=== PATIENT | male | born 1965 | race Asian ===

== ENCOUNTER 2023-10-18 12:45 | Emergency (ER) | payer OTHER ==
[~2023-10-18] VITALS: Ht 188 cm; Wt 95.0 kg
[2023-10-18 13:48] VITALS: TEMP 98.5
[2023-10-18 13:54] VITALS: BP 141/106; PULSE 78; RESP 16
[2023-10-18] MEDS ORDERED: AMLO-258 PO (13:54)
[2023-10-18] MEDS ORDERED: LOSA-381 PO (13:54)
[2023-10-18] MEDS: KETOROLAC TROMETHAMINE 30 MG/ML VIAL IVP ONE (14:36)
[2023-10-18] MEDS: METHOCARBAMOL 100 MG/ML 10 ML VIAL IVP ONE (14:36)
[2023-10-18] MEDS ORDERED: IBUP-1554 PO (15:49)
[2023-10-18] MEDS ORDERED: METH-812 PO (15:49)
== END 2023-10-18 16:22 | disposition home or self-care (01) ==
LOC: EMS 12:45
DX: G89.29 Other chronic pain (principal); M54.50 Low back pain, unspecified; I10 Essential (primary) hypertension; F17.210 Nicotine dependence, cigarettes, uncomplicated; V49.88XA Car occupant (driver) (passenger) injured in other specified transport accidents, initial encounter; Y93.89 Activity, other specified; Y92.89 Other specified places as the place of occurrence of the external cause; Y99.8 Other external cause status
CPT/HCPCS: 99284; 96374; 96375; 72040; 72070; 72100; J1885; J2800